=== PATIENT | male | born 1995 | race Hispanic/Latino ===

== ENCOUNTER 2019-01-11 23:24 | Emergency (ER) | payer OTHER ==
[2019-01-11] MEDS ORDERED: ACETAMINOPHEN 325 MG TAB ONE (23:36)
[2019-01-11 23:59] LABS: RAPID GROUP A STREP POSITIVE (NEGATIVE)
== END 2019-01-12 00:17 | disposition home or self-care (01) ==
LOC: EDH 23:24
DX: J02.0 Streptococcal pharyngitis (principal); Z98.890 Other specified postprocedural states
CPT/HCPCS: 87804; 87880